=== PATIENT | male | born 1975 | race Caucasian/White ===

== ENCOUNTER → 2023-12-11 14:59 | Outpatient (REF) | payer BC, SELFPAY | LOC: CLAB 14:59 | PROVIDERS: ATTENDING PHYSICIAN Surgery | DX: L02.212 Cutaneous abscess of back [any part, except buttock and flank] (principal) | CPT/HCPCS: 88304 ==

== ENCOUNTER 2025-08-07 06:23 | Day surgery (SDC) | payer BC, SELFPAY | END 2025-08-07 13:08 | disposition home or self-care (01) | LOC: GI 06:23 | PROVIDERS: ATTENDING PHYSICIAN Internal Medicine Gastroenterology | DX: Z12.11 Encounter for screening for malignant neoplasm of colon (principal); K64.8 Other hemorrhoids; K63.5 Polyp of colon | CPT/HCPCS: 45385; 88305 ==